=== PATIENT | female | born 1980 ===

== ENCOUNTER 2024-09-12 06:21 | Day surgery (SDC) | payer BC, SELFPAY | END 2024-09-12 15:55 | disposition home or self-care (01) | LOC: GI 06:21 | PROVIDERS: ATTENDING PHYSICIAN Internal Medicine Gastroenterology; FAMILY PHYSICIAN Nurse Practitioner | DX: D50.0 Iron deficiency anemia secondary to blood loss (chronic) (principal); K52.9 Noninfective gastroenteritis and colitis, unspecified; K57.30 Diverticulosis of large intestine without perforation or abscess without bleeding; K31.819 Angiodysplasia of stomach and duodenum without bleeding; K63.5 Polyp of colon | CPT/HCPCS: 45385; 43239; 88305 ==